=== PATIENT | female | born 1970 | race Caucasian/White ===

== ENCOUNTER 2016-05-03 14:34 | Emergency (ER) | payer OTHER ==
[2016-05-03] MEDS ORDERED: METOCLOPRAMIDE HCL 5 MG/ML 2ML VIAL ONE (15:17)
[2016-05-03] MEDS ORDERED: DIPHENHYDRAMINE HCL 50 MG/1 ML VIAL ONE (15:18)
[2016-05-03] MEDS ORDERED: LACTATED RINGERS 1,000 ML ONE (15:18)
[2016-05-03] MEDS ORDERED: KETOROLAC TROMETHAMINE 15 MG/ML VIAL ONE (15:18)
== END 2016-05-03 16:24 | disposition home or self-care (01) ==
LOC: ED 14:34
DX: G44.209 Tension-type headache, unspecified, not intractable (principal); G43.909 Migraine, unspecified, not intractable, without status migrainosus; E11.9 Type 2 diabetes mellitus without complications; Z79.84 Long term (current) use of oral hypoglycemic drugs